=== PATIENT | female | born 1985 | race African-American/Black ===

== ENCOUNTER 2017-12-05 07:12 | Day surgery (SDC) | payer MEDICAID ==
[2017-12-03 12:18] LABS: BASOPHILS % (AUTO) 0.5 % (0.0-5.0); EOSINOPHILS % (AUTO) 0.5 % (0.0-8.0); HEMATOCRIT 32.1 % (36-48); LYMPHOCYTES % (AUTO) 20.5 % (21.0-51.0); MEAN CORPUSCULAR HGB CONC 35.8 g/dL (32.0-36.0); MEAN CORPUSCULAR VOLUME 83.9 fL (79-99); MONOCYTES % (AUTO) 6.3 % (3.0-13.0); NEUTROPHILS % (AUTO) 72.2 % (40.0-77.0); NUCLEATED RED BLOOD CELLS 0.1 % (0.0-0.19); PLATELET COUNT (AUTO) 323 K/uL (130-400); RED BLOOD CELL COUNT(AUTO) 3.82 MIL/uL (4.00-5.50); RED CELL DISTRIBUTION WIDTH 13.5 % (11.0-15.5); WHITE BLOOD COUNT (AUTO) 10.8 K/uL (4.8-10.8)
[2017-12-03 12:20] VITALS: BP 138/81
[~2017-12-05] VITALS: Ht 165.1 cm; Wt 88.4 kg
[2017-12-05] VITALS (9 sets, daily range): BP systolic 114–135; BP diastolic 69–95
[~2017-12-05 07:12] MED LIST: BUPR150T8 PO; LABE100T PO; PREN-196 PO
[2017-12-05] MEDS ORDERED: LACTATED RINGERS 1000ML 1,000 ML IV SCH (08:00)
[2017-12-05] MEDS ORDERED: CEFAZOLIN SODIUM 1 GM VIAL IVP ONE (08:00)
[2017-12-05 10:21] LABS: AMPHET/METH SCREEN,URINE NEGATIVE (NEGATIVE); BARBITURATE SCREEN, URINE NEGATIVE (NEGATIVE); BENZODIAZEPINES SCREEN,URINE POSITIVE (NEGATIVE); CANNABINOID SCREEN,URINE NEGATIVE (NEGATIVE); COCAINE SCREEN,URINE NEGATIVE (NEGATIVE); OPIATE SCREEN,URINE NEGATIVE (NEGATIVE); PHENCYCLIDINE SCREEN,URINE NEGATIVE (NEGATIVE)
[2017-12-05] MEDS ORDERED: ACETAMINOPHEN-CODEINE 300/30MG TAB ONE (11:15)
[2017-12-05] MEDS ORDERED: ACETAMINOPHEN-CODEINE 300/30MG TAB PO PRN ×4 (12:00→12:01)
== END 2017-12-05 12:25 | disposition home or self-care (01) ==
LOC: DAH 07:12
DX: N88.3 Incompetence of cervix uteri (principal); O16.1 Unspecified maternal hypertension, first trimester; Z37.9 Outcome of delivery, unspecified; O99.341 Other mental disorders complicating pregnancy, first trimester; F41.9 Anxiety disorder, unspecified; Z79.899 Other long term (current) drug therapy; Z82.49 Family history of ischemic heart disease and other diseases of the circulatory system
CPT/HCPCS: 36415; 59320; 80305; 85025; 87088; A4606; J7120 ×2

== ENCOUNTER 2018-01-13 11:15 | Observation (INO) | payer MEDICAID ==
[~2018-01-13] VITALS: Ht 165.1 cm; Wt 90.7 kg
[~2018-01-13 11:15] MED LIST changes: -LABE100T PO; +LABE100T5 PO
[2018-01-13] MEDS ORDERED: PROMETHAZINE HCL 25 MG/ML 1ML AMPULE IM ONE (12:35)
[2018-01-13 15:11] VITALS: BP 108/67
== END 2018-01-13 15:37 | disposition home or self-care (01) ==
LOC: EDH 11:15 → LDH 11:42 → INTOOBSV 11:42
DX: O21.2 Late vomiting of pregnancy (principal); O10.912 Unspecified pre-existing hypertension complicating pregnancy, second trimester; Z3A.20 20 weeks gestation of pregnancy
CPT/HCPCS: 96372; 99285; G0378 ×4; J2550; 96360; 96361

== ENCOUNTER 2018-01-20 14:05 | Inpatient (IN) | payer MEDICAID ==
[~2018-01-20] VITALS: Ht 165.1 cm; Wt 91.2 kg
[2018-01-20 15:21] LABS: APPEARANCE,URINE Cloudy (CLEAR); BILIRUBIN,URINE Negative (NEGATIVE); COLOR,URINE Yellow (YELLOW); GLUCOSE, URINE (UA) Negative (NEGATIVE); KETONES,URINE Negative (NEGATIVE); LEUKOCYTE ESTERASE ,URINE Large (NEGATIVE); NITRATE,URINE Negative (NEGATIVE); OCCULT BLOOD,URINE Moderate (NEGATIVE); PROTEIN,URINE Trace (NEGATIVE)
[2018-01-20 15:52] LABS: BACTERIA,URINE Few /HPF (None Seen); RBC,URINE None Seen /HPF (0-1)
[2018-01-20] MEDS ORDERED: PROMETHAZINE HCL 25 MG/ML 1ML AMPULE IM PRN (17:30)
[2018-01-20] MEDS ORDERED: ACETAMINOPHEN 325 MG TAB PO PRN (17:30)
[2018-01-20 17:54] LABS: AMPHET/METH SCREEN,URINE NEGATIVE (NEGATIVE); BARBITURATE SCREEN, URINE NEGATIVE (NEGATIVE); BENZODIAZEPINES SCREEN,URINE POSITIVE (NEGATIVE); CANNABINOID SCREEN,URINE NEGATIVE (NEGATIVE); COCAINE SCREEN,URINE NEGATIVE (NEGATIVE); OPIATE SCREEN,URINE NEGATIVE (NEGATIVE); PHENCYCLIDINE SCREEN,URINE NEGATIVE (NEGATIVE)
[2018-01-20] MEDS ORDERED: PROMETHAZINE HCL 25 MG/ML 1ML AMPULE IM ONE (17:55)
[2018-01-20] MEDS ORDERED: AMPICILLIN 2GM+NS 100ML 100 ML IV ONE (17:55)
[2018-01-20] MEDS ORDERED: ACETAMINOPHEN 325 MG TAB ONE (17:55)
[2018-01-20 18:21] LABS: MEAN CORPUSCULAR HEMOGLOBIN 29.4 pg (27.0-33.0); MEAN CORPUSCULAR HGB CONC 34.5 g/dL (32.0-36.0); MEAN CORPUSCULAR VOLUME 85.1 fL (79-99); PLATELET COUNT (AUTO) 355 K/uL (130-400); RED BLOOD CELL COUNT(AUTO) 3.65 MIL/uL (4.00-5.50); RED CELL DISTRIBUTION WIDTH 13.6 % (11.0-15.5); WHITE BLOOD COUNT (AUTO) 19.1 K/uL (4.8-10.8)
[2018-01-20] MEDS ORDERED: MAGNESIUM SULFATE 1,000 ML IV PRN (20:05)
[2018-01-20] MEDS ORDERED: MAGNESIUM SULFATE 1,000 ML IV ONE (20:10)
[2018-01-20] MEDS ORDERED: MAGNESIUM 4GM PREMIX 100ML 100 ML IV SCH (20:15)
[2018-01-20] MEDS ORDERED: CALCIUM GLUCONATE 1 GM/10 ML VIAL IV PRN (20:15)
[2018-01-20] MEDS ORDERED: MEPERIDINE-PF 50 MG/ML SYG ONE (21:49)
[2018-01-20] MEDS ORDERED: PROMETHAZINE HCL 25 MG/ML 1ML AMPULE IM SCH (22:30)
[2018-01-20] MEDS ORDERED: MEPERIDINE-PF 50 MG/ML SYG IVP ONE (22:30)
[2018-01-20] MEDS ORDERED: GLYCOPYRROLATE 0.2 MG/ML 5 ML VIAL ONE (22:34)
[2018-01-20] MEDS ORDERED: DEXAMETHASONE SOD PHOSPHATE 10MG/ML 1ML VIAL ONE (22:34)
[2018-01-20] MEDS ORDERED: LIDOCAINE PF 2% 5ML ABBOJECT ONE (22:34)
[2018-01-20] MEDS ORDERED: ONDANSETRON HCL 4 MG/2 ML VIAL ONE (22:34)
[2018-01-20] MEDS ORDERED: SUCCINYLCHOLINE 200MG/10ML SYR ONE (22:34)
[2018-01-20] MEDS ORDERED: NEOSTIGMINE 5MG/5ML SYR IV ONE (22:34)
[2018-01-20] MEDS ORDERED: FENTANYL CITRATE PF 50 MCG/1 ML 2ML VIAL ONE (22:37)
[2018-01-20] MEDS ORDERED: MIDAZOLAM HCL 1 MG/ML 2ML VIAL ONE (22:37)
[2018-01-20] MEDS ORDERED: PROPOFOL 10 MG/ML 20ML VIAL IV ONE ×2 (22:37→22:49)
[2018-01-20] MEDS ORDERED: CEFAZOLIN 2GM / 50 ML 50 ML IV SCH (23:30)
[2018-01-21] MEDS ORDERED: AMPICILLIN 2GM+NS 100ML 100 ML IV SCH
[2018-01-21] MEDS ORDERED: CEFAZOLIN SODIUM 1 GM VIAL ONE (01:05)
[2018-01-21] MEDS: IBUPROFEN 800 MG TAB PO PRN ×2 (03:23→12:17)
[2018-01-21] MEDS ORDERED: OXYTOCIN 10 USP UNITS/ML ONE (04:08)
[2018-01-21 06:35] LABS: HEMATOCRIT 31.8 % (36-48); MEAN CORPUSCULAR HEMOGLOBIN 29.2 pg (27.0-33.0); MEAN CORPUSCULAR HGB CONC 34.3 g/dL (32.0-36.0); MEAN CORPUSCULAR VOLUME 85.3 fL (79-99); PLATELET COUNT (AUTO) 357 K/uL (130-400); RED BLOOD CELL COUNT(AUTO) 3.72 MIL/uL (4.00-5.50); RED CELL DISTRIBUTION WIDTH 13.4 % (11.0-15.5); WHITE BLOOD COUNT (AUTO) 21.6 K/uL (4.8-10.8)
[2018-01-21 07:12] LABS: RAPID PLASMA REAGIN NONREACTIVE (NONREACTIVE)
[2018-01-21 07:31] VITALS: BP 108/65
[2018-01-21] MEDS: DOCUSATE SODIUM 100 MG CAP PO SCH ×2 (08:32→20:31)
[2018-01-21] MEDS: ACETAMINOPHEN-CODEINE 300/30MG TAB PO PRN ×2 (08:33→15:57)
[2018-01-21] MEDS ORDERED: PROM25TA7 PO (08:43)
[2018-01-21] MEDS ORDERED: CEFAZOLIN SODIUM 1 GM VIAL IVP SCH (10:00)
[2018-01-21] MEDS: CEFAZOLIN SODIUM 1 GM VIAL IVP SCH ×2 (10:29→18:12)
[2018-01-21 11:50] VITALS: BP 132/88
[2018-01-21] MEDS: LACTATED RINGERS 1000ML 1,000 ML IV PRN ×2 (13:00→21:07)
[2018-01-21] MEDS: BENZOCAINE/MENTH/CETYLPYRD CL 1 EACH LOZENGE MM PRN ×2 (15:53→21:07)
[2018-01-21 16:06] VITALS: BP 141/93
[2018-01-21 19:28] VITALS: BP 140/97
[2018-01-21] MEDS: BUSPIRONE HCL 5 MG TABLET PO SCH (20:31)
[2018-01-21] MEDS: LABETALOL HCL 100 MG TABLET PO SCH (20:31)
[2018-01-21 23:13] VITALS: BP 145/87
[2018-01-22] MEDS ORDERED: CEFAZOLIN SODIUM 1 GM VIAL ONE (02:07)
[2018-01-22] MEDS ORDERED: CEFAZOLIN 2GM / 50 ML 50 ML IV SCH (02:15)
[2018-01-22] MEDS: ACETAMINOPHEN-CODEINE 300/30MG TAB PO PRN (02:22)
[2018-01-22 03:29] VITALS: BP 120/78
[2018-01-22] MEDS ORDERED: CEFAZOLIN SODIUM 1 GM VIAL IVP SCH (04:00)
[2018-01-22] MEDS: LACTATED RINGERS 1000ML 1,000 ML IV PRN (05:26)
[2018-01-22] MEDS: BENZOCAINE/MENTH/CETYLPYRD CL 1 EACH LOZENGE MM PRN (05:29)
[2018-01-22 07:18] VITALS: BP 137/58
[2018-01-22 08:22] LABS: HEPATITIS Bs ANTIGEN SCREEN P Negative (Negative)
[2018-01-22] MEDS: IBUPROFEN 800 MG TAB PO PRN (08:46)
[2018-01-22] MEDS: LABETALOL HCL 100 MG TABLET PO SCH (08:46)
[2018-01-22] MEDS: DOCUSATE SODIUM 100 MG CAP PO SCH (08:46)
[2018-01-22] MEDS: BUSPIRONE HCL 5 MG TABLET PO SCH (08:47)
[2018-01-22 09:06] LABS: BASOPHILS % (AUTO) 0.3 % (0.0-5.0); LYMPHOCYTES % (AUTO) 21.8 % (21.0-51.0); MEAN CORPUSCULAR HEMOGLOBIN 30.5 pg (27.0-33.0); MEAN CORPUSCULAR HGB CONC 35.4 g/dL (32.0-36.0); MEAN CORPUSCULAR VOLUME 86.2 fL (79-99); MONOCYTES % (AUTO) 6.8 % (3.0-13.0); NEUTROPHILS % (AUTO) 69.1 % (40.0-77.0); PLATELET COUNT (AUTO) 338 K/uL (130-400); RED BLOOD CELL COUNT(AUTO) 3.48 MIL/uL (4.00-5.50); RED CELL DISTRIBUTION WIDTH 13.6 % (11.0-15.5); WHITE BLOOD COUNT (AUTO) 13.7 K/uL (4.8-10.8)
== END 2018-01-22 10:55 | disposition home or self-care (01) | DRG 560 ==
LOC: EDH 14:05 → LDH 14:06 → WSH 01-21 00:45 → OBSVTOIN 01-21 05:08 → WSH 01-21 05:08
PROVIDERS: ADMIT Specialist; ATTEND Specialist
PROC: 10E0XZZ Delivery of Products of Conception, External Approach (ICD-10-PCS; principal; 2018-01-22)
PROC: 0UCC7ZZ Extirpation of Matter from Cervix, Via Natural or Artificial Opening (ICD-10-PCS; 2018-01-22)
DX: O41.1220 Chorioamnionitis, second trimester, not applicable or unspecified (principal); Z37.1 Single stillbirth; N88.3 Incompetence of cervix uteri; Z3A.21 21 weeks gestation of pregnancy
CPT/HCPCS: 36415; 80305; 81001; 85025; 85027; 86592; 86701; 86850; 86900; 86901; 87070; 87076; 87077; 87186; 87340; 87390; 88305; A4218; G0378; J0290; J0330; J0690; J1100; J2001; J2175; J2250; J2405; J2550; J2590; J2704; J2710; J3010; J3475; J3490; J7120

== ENCOUNTER 2020-01-11 06:35 | Observation (INO) | payer MEDICAID ==
[~2020-01-11] VITALS: Ht 165.1 cm; Wt 96.6 kg
[~2020-01-11 06:35] MED LIST changes: -BUPR150T8 PO; -LABE100T5 PO; +LABE200T5 PO
[2020-01-11] MEDS ORDERED: CEFAZOLIN SODIUM 1 GM VIAL ONE (07:09)
[2020-01-11] MEDS ORDERED: LACTATED RINGERS 1000ML 1,000 ML IV ONE (07:09)
[2020-01-11 07:25] VITALS: BP 135/90
[2020-01-11] MEDS ORDERED: CEFAZOLIN SODIUM 1 GM VIAL IVP SCH ×2 (07:45→15:45)
[2020-01-11 07:52] LABS: BASOPHILS % (AUTO) 0.2 % (0.0-5.0); EOSINOPHILS % (AUTO) 2.5 % (0.0-8.0); HEMATOCRIT 31.1 % (36-48); LYMPHOCYTES % (AUTO) 21.4 % (21.0-51.0); MEAN CORPUSCULAR HEMOGLOBIN 28.5 pg (27.0-33.0); MEAN CORPUSCULAR HGB CONC 34.7 g/dL (32.0-36.0); MEAN CORPUSCULAR VOLUME 82.1 fL (79-99); MONOCYTES % (AUTO) 6.4 % (3.0-13.0); PLATELET COUNT (AUTO) 273 K/uL (130-400); RED BLOOD CELL COUNT(AUTO) 3.79 MIL/uL (4.00-5.50); RED CELL DISTRIBUTION WIDTH 12.9 % (11.0-15.5); WHITE BLOOD COUNT (AUTO) 12.1 K/uL (4.8-10.8)
[2020-01-11 12:39] VITALS: BP 138/94
[2020-01-11 16:54] VITALS: BP 153/99
[2020-01-11] MEDS: CEFAZOLIN SODIUM 1 GM VIAL IVP SCH (17:55)
[2020-01-11 20:35] VITALS: BP 148/104
[2020-01-11 20:40] VITALS: BP 140/102
[2020-01-11] MEDS: LABETALOL HCL 200 MG TABLET PO SCH (21:14)
[2020-01-11 22:45] VITALS: BP 145/83
--- NOTE | 2020-01-11 22:45 | NUR ---
STATUS NO VAGINAL BLEEDING NOTED, NO CONCERNS VOICED Addendum: 01/11/20 at 2318 by MARILYN VILLAREAL LVN Amended: Links added.
[2020-01-12] MEDS: CEFAZOLIN SODIUM 1 GM VIAL IVP SCH ×2 (01:54→10:19)
--- NOTE | 2020-01-12 06:10 | NUR ---
REHMAN CATHETER F/C REMOVED, CATHETER INTACT, TOLERATED WELL, NO VAGINAL BLEEDING NOTED Addendum: 01/12/20 at 0626 by MARILYN VILLAREAL LVN Amended: Links added.
--- NOTE | 2020-01-12 08:45 | NUR ---
DR.REDMOND PAGE. DISCHARGE POC DISCUSSED. PATIENT OKAY TO GO HOME. FOLLOW UP IN A WEEK.
[2020-01-12] MEDS: LABETALOL HCL 200 MG TABLET PO SCH (08:59)
--- NOTE | 2020-01-12 10:50 | NUR ---
DISCHARGE INSTRUCTIONS READ AND EXPLAINED TO PATIENT. RX FOR KEFLEX 500MG HANDED TO PATIENT IN DISCHARGE FOLDER. PATIENT VOICED UNDERSTANDING ON ALL INSTRUCTIONS.
--- NOTE | 2020-01-12 11:00 | NUR ---
PATIENT LEFT UNIT VIA WHEELCHAIR WITH BELONGINGS IN HAND. PERSONAL VEHICLE USED FOR TRANSPORTATION. NO COMPLAINTS OR CONCERNS ADDRESSED FROM PATIENT ON DISCHARGE.
== END 2020-01-12 11:00 | disposition home or self-care (01) ==
LOC: LDH 06:35 → DAH 06:35 → DAHIP 06:36 → WSH 12:33
DX: N88.3 Incompetence of cervix uteri (principal); O03.4 Incomplete spontaneous abortion without complication; Z91.040 Latex allergy status; Z88.8 Allergy status to other drugs, medicaments and biological substances
CPT/HCPCS: 36415; 59320; 85025; 96374; 96376; A4213; A4215; A4221; A4222; A4223; A4663; G0378 ×19; J0690 ×4; J7030; J7120 ×2

== ENCOUNTER 2020-06-18 18:30 | Inpatient (IN) | payer MEDICAID ==
[~2020-06-18] VITALS: Ht 165.1 cm; Wt 108.9 kg
[2020-06-18 18:59] LABS: APPEARANCE,URINE Clear (CLEAR); BILIRUBIN,URINE Negative (NEGATIVE); COLOR,URINE Yellow (YELLOW); GLUCOSE, URINE (UA) Negative (NEGATIVE); KETONES,URINE Negative (NEGATIVE); LEUKOCYTE ESTERASE ,URINE Negative (NEGATIVE); NITRATE,URINE Negative (NEGATIVE); OCCULT BLOOD,URINE Moderate (NEGATIVE); PROTEIN,URINE POS 2+ mg/dL (NEGATIVE)
[2020-06-18 19:23] LABS: BACTERIA,URINE Few /HPF (None Seen); SQUAMOUS EPITHELIAL CELL,UR Few /HPF (0-2); WBC,URINE 0-1 /HPF (0-1)
[2020-06-18] MEDS ORDERED: LACTATED RINGERS 1000ML 1,000 ML IV PRN (19:30)
[2020-06-18 19:31] LABS: HEMATOCRIT 32.2 % (36-48); MEAN CORPUSCULAR HEMOGLOBIN 29.4 pg (27.0-33.0); MEAN CORPUSCULAR HGB CONC 34.5 g/dL (32.0-36.0); MEAN CORPUSCULAR VOLUME 85.4 fL (79-99); RED BLOOD CELL COUNT(AUTO) 3.77 MIL/uL (4.00-5.50); RED CELL DISTRIBUTION WIDTH 14.6 % (11.0-15.5)
[2020-06-18 19:35] VITALS: BP 170/115
[2020-06-18 20:10] LABS: CREATININE 0.7 mg/dL (0.5-1.5); POTASSIUM 3.4 mmol/L (3.5-5.1)
[2020-06-18 20:14] LABS: INR 0.85 (0.85-1.15); PROTHROMBIN TIME 9.2 SEC (9.6-11.6)
[2020-06-18] MEDS ORDERED: LABETALOL HCL 100 MG TABLET ONE (20:14)
[2020-06-18 20:15] LABS: ALBUMIN 2.5 g/dL (3.5-5.0); BILIRUBIN,TOTAL 0.2 mg/dL (0.2-1.0); TOTAL PROTEIN, SERUM 6.8 g/dL (6.0-8.3); URIC ACID 7.7 mg/dL (2.6-7.2)
[2020-06-18] MEDS: LACTATED RINGERS 1000ML 1,000 ML IV SCH (20:15)
[2020-06-18] MEDS ORDERED: OXYM-30 NS (20:27)
[2020-06-18] MEDS ORDERED: FERR-82 PO (20:27)
[2020-06-18] MEDS ORDERED: LABE200T5 PO (20:27)
[2020-06-18] MEDS ORDERED: PREN1TAB80 PO (20:27)
[2020-06-18] MEDS: LABETALOL HCL 200 MG TABLET PO SCH (20:31)
[2020-06-18 21:22] LABS: AMPHET/METH SCREEN,URINE NEGATIVE (NEGATIVE); BARBITURATE SCREEN, URINE NEGATIVE (NEGATIVE); BENZODIAZEPINES SCREEN,URINE POSITIVE (NEGATIVE); CANNABINOID SCREEN,URINE NEGATIVE (NEGATIVE); COCAINE SCREEN,URINE NEGATIVE (NEGATIVE); OPIATE SCREEN,URINE NEGATIVE (NEGATIVE); PHENCYCLIDINE SCREEN,URINE NEGATIVE (NEGATIVE)
[2020-06-18] MEDS ORDERED: MAGNESIUM 4GM PREMIX 100ML 100 ML IV PRN (22:00)
[2020-06-18] MEDS ORDERED: MAGNESIUM SULFATE 1,000 ML IV ONE (22:03)
[2020-06-18] MEDS ORDERED: MAGNESIUM 4GM PREMIX 100ML 100 ML IV ONE (22:03)
[2020-06-18] MEDS ORDERED: HYDRALAZINE HCL 20 MG/ML VIAL ONE (22:03)
[2020-06-18] MEDS ORDERED: CALCIUM GLUCONATE 1 GM/10 ML VIAL IV PRN (22:45)
[2020-06-19] MEDS: HYDRALAZINE HCL 20 MG/ML VIAL IV SCH (00:17)
[2020-06-19] MEDS: MAGNESIUM SULFATE 1,000 ML IV PRN ×2 (00:29→13:59)
[2020-06-19] MEDS ORDERED: AMPICILLIN 2GM+NS 100ML 100 ML IV ONE (00:37)
[2020-06-19] MEDS ORDERED: AMPICILLIN 2GM+NS 100ML 100 ML IV SCH (01:00)
[2020-06-19] MEDS ORDERED: ACETAMINOPHEN EXTRA STRENGTH 500 MG TABLET ONE (01:38)
[2020-06-19] MEDS ORDERED: ACETAMINOPHEN EXTRA STRENGTH 500 MG TABLET PO SCH (01:45)
[2020-06-19] MEDS ORDERED: ACETAMINOPHEN EXTRA STRENGTH 500 MG TABLET PO PRN (01:45)
[2020-06-19] MEDS: AMPICILLIN 1GM+NS 50ML 50 ML IV SCH ×3 (04:16→12:29)
[2020-06-19] MEDS ORDERED: OXYTOCIN 10 USP UNITS/ML 20 UNIT in LACTATED RINGERS 1000ML 1,000 ML IV SCH (08:00)
[2020-06-19] MEDS ORDERED: MEPERIDINE-PF 50 MG/ML SYG IVP ONE (08:00)
[2020-06-19] MEDS ORDERED: EPHEDRINE SULFATE 50 MG/ML AMPULE IVP PRN (08:00)
[2020-06-19] MEDS ORDERED: NALOXONE HCL 0.4 MG/1 ML ML IV PRN (08:00)
[2020-06-19] MEDS ORDERED: PROMETHAZINE HCL 25 MG/ML 1ML AMPULE IM SCH (08:00)
[2020-06-19] MEDS ORDERED: LACTATED RINGERS 500 ML 500 ML IV PRN (08:00)
[2020-06-19] MEDS ORDERED: OXYTOCIN-LR 20 UNITS/1000 ML 1,000 ML IV SCH (08:15)
[2020-06-19 08:28] LABS: RAPID PLASMA REAGIN NONREACTIVE (NONREACTIVE)
[2020-06-19] MEDS: LABETALOL HCL 200 MG TABLET PO SCH ×2 (09:19→21:03)
[2020-06-19] MEDS: LACTATED RINGERS 1000ML 1,000 ML IV SCH (09:19)
[2020-06-19] MEDS ORDERED: MEASLES/MUMPS/RUBELLA VACCINE, LIVE 0.5 ML/VIAL SQ PRN (15:00)
[2020-06-19] MEDS ORDERED: LACTATED RINGERS 1000ML 1,000 ML IV SCH (15:00)
[2020-06-19] MEDS ORDERED: ACETAMINOPHEN 325 MG TAB PO PRN (15:00)
[2020-06-19] MEDS ORDERED: WITCH HAZEL 1 PAD TP PRN (15:00)
[2020-06-19] MEDS ORDERED: MAGNESIUM 4GM PREMIX 100ML 100 ML IV PRN (15:00)
[2020-06-19] MEDS ORDERED: MAGNESIUM SULFATE 1,000 ML IV PRN (15:00)
[2020-06-19] MEDS ORDERED: CALCIUM GLUCONATE 1 GM/10 ML VIAL IV PRN (15:00)
[2020-06-19] MEDS ORDERED: DIPH,PERTUSS(ACELL),TET VAC/PF 0.5 ML VIAL IM PRN (15:00)
[2020-06-19] MEDS ORDERED: LANOLIN 30GM OINTMENT TP PRN (15:00)
[2020-06-19] MEDS ORDERED: BENZOCAINE/LANOLIN/ALOE VERA 60 ML AEROSOL TP PRN (15:00)
[2020-06-19] MEDS: IBUPROFEN 600 MG TABLET PO PRN ×2 (16:44→22:35)
[2020-06-19] MEDS ORDERED: HYDRALAZINE HCL 20 MG/ML VIAL IV SCH (16:50)
[2020-06-19] MEDS: ACETAMINOPHEN-CODEINE 300/30MG TAB PO PRN (19:53)
[2020-06-19] MEDS: OXYTOCIN-LR 20 UNITS/1000 ML 1,000 ML IV SCH ×2 (21:03→21:05)
[2020-06-20] MEDS: IBUPROFEN 600 MG TABLET PO PRN ×2 (05:12→17:16)
[2020-06-20] MEDS: MAGNESIUM SULFATE 1,000 ML IV PRN (06:06)
[2020-06-20] MEDS: LABETALOL HCL 200 MG TABLET PO SCH ×2 (08:51→21:26)
--- NOTE | 2020-06-20 11:00 | NUR ---
Positive UDS-Benzo on Mom; negative UDS on , meconium sent out Referral from nursing for positive UDS. SW met with pt. who is awake, alert, oriented and pleasant. Mother reports that she has a 3y currently being cared for by her boyfriend/FOB Quan Philippe; a loss of a baby in 2018 at 5mos. 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 Pt. denies any history of depression, other than the loss of her baby at 21weeks of for which pt. states she was given Zoloft. Pt. denies current thoughts of harm to self or others. Pt. denies any history of physical or emotional abuse. Pt. reports a strong support system among boyfriend and family. All utilities reportedly connected in the home and boyfriend will provide transportation home. Carseat and baby essentials in place. Pt. is Medicaid and WIC enrolled; SNAP in the amount of $355/month. Pt. denies any use of illicit substances. SW discussed positive UDS/Benzo with pt. and she reports that she was made aware by nursing staff, however, pt. denies using any illicit or prescribed medication. Pt. reports that again, the only medication prescribed her two years ago was Zoloft. SW spoke with pt. about positive UDS with [employer] in November 2019; pt. denies and reports that she does not understand how she is testing positive as she is not taking anything other than her blood pressure medications. Pt. then admitted that she was prescribed Xanax in 2018 after the loss of her baby, however, has not taken any since. Pt. then informed this worker that she could not continue with conversation as she felt her blood pressure was going up. DONA concluded interview. Report made to [facility], Reference#[id number]. DONA will continue to follow. Addendum: 06/20/20 at 1538 by FERNANDEZ COOK SS Amended: Links added.
[2020-06-20 11:26] VITALS: BP 153/96
[2020-06-20 15:12] LABS: HEPATITIS Bs ANTIGEN SCREEN P Negative (Negative)
[2020-06-20 16:10] VITALS: BP 124/76
[2020-06-20 19:45] VITALS: BP 146/91
[2020-06-20] MEDS: DOCUSATE SODIUM 100 MG CAP PO SCH ×2 (21:00→21:26)
[2020-06-20] MEDS: AMPICILLIN 1GM+NS 50ML 50 ML IV SCH (21:00)
[2020-06-20] MEDS: ACETAMINOPHEN-CODEINE 300/30MG TAB PO PRN (21:34)
[2020-06-20] MEDS: HYDRALAZINE HCL 20 MG/ML VIAL IV SCH (22:00)
[2020-06-20 23:43] VITALS: BP 147/84
[2020-06-21 04:00] VITALS: BP 150/100
[2020-06-21] MEDS: LACTATED RINGERS 1000ML 1,000 ML IV SCH (04:05)
[2020-06-21] MEDS: IBUPROFEN 600 MG TABLET PO PRN (04:18)
[2020-06-21 05:34] VITALS: BP 152/92
[2020-06-21 08:20] VITALS: BP 161/114
[2020-06-21 08:25] VITALS: BP 152/96
[2020-06-21] MEDS ORDERED: LABETALOL HCL 100 MG TABLET ONE (08:43)
[2020-06-21] MEDS: LABETALOL HCL 200 MG TABLET PO SCH (08:47)
[2020-06-21] MEDS: DOCUSATE SODIUM 100 MG CAP PO SCH (08:48)
[2020-06-21] MEDS ORDERED: LABETALOL HCL 200 MG TABLET PO SCH (09:00)
--- NOTE | 2020-06-21 10:00 | NUR ---
CPS-Call placed to CPS [phone] to follow up on case assignment, however, SW was informed that it is undetermined at this time if case will be assigned to a rubber trimmer. Pt. being dismissed today; to remain. SW will continue to follow for any needed intervention/needs.
[2020-06-21 11:17] VITALS: BP 141/104
--- NOTE | 2020-06-21 11:40 | NUR ---
pt is discharged. verbal and written discharge instructions given, pls refer to [facility]. informed of the follow up appointment. informed that Dr. Castano will call in prescription for high blood pressure. informed pt to monitor blood pressure and bring the list with her on her follow up appointment. informed to call the doctor for further concerns. pt voiced understanding to all things discussed. Addendum: 06/21/20 at 1151 by RODRIGO STEVEN RN Amended: Links added.
--- NOTE | 2020-06-21 11:50 | NUR ---
pt is dismissed, brought to private car via wheelchair by Lynn Leach pcp Addendum: 06/21/20 at 1152 by RODRIGO STEVEN RN Amended: Links added.
--- NOTE | 2020-06-22 10:32 | NUR ---
Copy of Note from Yazmin Hall ([id number]): CPS CPS Worker Miya Hidalgo (cell# [phone]) here to see yazmin Hall. Received update from nurse Carr. States will go visit with mom to develop safety plan and will call SS or CM once safety plan is in place. Nurse Carr aware to hold baby until cleared by CPS. Copy of badge and cell # taken and placed in chart. CD
--- NOTE | 2020-06-22 10:40 | NUR ---
CPS-This worker spoke w/Miya Hidalgo CPS clinical training specialist assigned to . Ms. Hidalgo is making a home visit to meet with birthmother and continue investigation. not to be released until cleared by CPS. Ms. Hidalgo to follow up with this worker. Nursery staff aware.
--- NOTE | 2020-06-22 15:40 | NUR ---
CPS-Call from Miya Hidalgo/Obgyn Hospitalist Physician, reporting that her investigation is completed. Safety Plan completed with 's mother and grandmother.[place] is to be d/c'd to grandmother who will accompany mother for d/c instructions. This worker informed CONNIE Carr of above. Consent for [facility] left with nursing for mother's signature so that referral could be made by this worker. SW previously provided mother with information on [facility]
--- NOTE | 2020-07-03 12:16 | NUR ---
CPS-MECONIUM RESULTS-Call from Miya Hidalgo/[facility] requesting copy of meconium results. Results faxed to [facility] [phone]
== END 2020-06-21 11:50 | disposition home or self-care (01) | DRG 542 ==
LOC: EDH 18:30 → OBSVTOIN 18:31 → LDH 18:31 → WSH 06-20 11:30
PROVIDERS: ADMIT Specialist; ATTEND Specialist
PROC: 10E0XZZ Delivery of Products of Conception, External Approach (ICD-10-PCS; principal; 2020-06-18)
PROC: 6A550ZT Pheresis of Cord Blood Stem Cells, Single (ICD-10-PCS; 2020-06-18)
PROC: 0UCC7ZZ Extirpation of Matter from Cervix, Via Natural or Artificial Opening (ICD-10-PCS; 2020-06-18)
PROC: 00HU33Z Insertion of Infusion Device into Spinal Canal, Percutaneous Approach (ICD-10-PCS; 2020-06-18)
PROC: 3E0R3BZ Introduction of Anesthetic Agent into Spinal Canal, Percutaneous Approach (ICD-10-PCS; 2020-06-18)
DX: O11.4 Pre-existing hypertension with pre-eclampsia, complicating childbirth (principal); Z37.0 Single live birth; O24.420 Gestational diabetes mellitus in childbirth, diet controlled; Z3A.36 36 weeks gestation of pregnancy
CPT/HCPCS: 36415; 76819; 80053; 80305; 81001; 82948; 83735; 84550; 85027; 85384; 85610; 85730; 86592; 86701; 86850; 86900; 86901; 87340; 87390; 96360; 96361; A4314; G0378; J0290; J0360; J2590; J3475; J7120

== ENCOUNTER → 2023-05-01 | Outpatient (CLI) | payer MEDICAID ==
[~2023-05-01] MED LIST changes: +FERR-82 PO; -LABE200T5 PO; +LABE200T7 PO; +OXYM-30 NS; +PREN1TAB80 PO
== END | disposition home or self-care (01) ==
LOC: RAH 10:55
PROVIDERS: ATTEND Family Medicine
DX: N64.52 Nipple discharge (principal); N64.4 Mastodynia
CPT/HCPCS: 76641; 77066